=== PATIENT | male | born 1985 | race Caucasian/White ===

== ENCOUNTER → 2021-08-14 00:44 | Outpatient (CLI) | payer OTHER, SELFPAY ==
[2021-08-14 13:21] LABS: SARS-CoV-2 RNA PCR Negative
== END ==
PROVIDERS: PCP Internal Medicine; Visit Provider Urology
DX: Z01.812 Encounter for preprocedural laboratory examination (principal); Z20.822 Contact with and (suspected) exposure to COVID-19
CPT/HCPCS: C9803; U0003; U0005

== ENCOUNTER 2021-08-17 01:20 | Day surgery (SDC) | payer OTHER, SELFPAY ==
[2021-08-11 15:23] VITALS: BMI 41.3
--- NOTE | 2021-08-11 15:31 | PC.NURSE ---
Report to the Outpatient Waiting Room, entrance under the green pavilion located off [facility], at time 0600 on date 08/17/21. OR Time: 0730. - You will be asked a series of questions to screen for COVID 19 for your protection. - A mask is required within the hospital. - No visitors are allowed at this time. Preoperative COVID Testing Requirements: COVID TEST 08/14 AT 0925 No COVID Test needed if: (proof is required; if not received patient will have Rapid Test prior to entry) - Patient has received COVID Vaccine at least 14 days prior to procedure date or - Patient has positive COVID test result within last 90 days of surgery date. COVID Test needed if above criteria is not met If not COVID vaccinated a COVID test must be conducted within 72 hours of surgery and patient is asked to isolate self from time of testing until procedure. You will go to the [facility] for your COVID testing. The [facility] site is located at the corner of [address] [facility]. You will only be called if COVID results are positive and your surgeon may reschedule your elective surgery date. Patients may have clear liquids (water, carbonated beverages, clear teas, apple juice) until 3 hours prior to surgery with a maximum of 20 ounces. - No food from midnight until time of surgery Take the following medications with a SIP of water the morning of surgery: CITALOPRAM Medications to discontinue per physician: MELOXICAM Date to take last dose: PER DR. ANTOINE Please no make-up, nail swedish, hairspray, perfume, deodorant, or body powder the day of surgery. No jewelry (including any body piercings) or valuables the day of surgery, leave them at home. Please take a shower or bath the night before, or the morning of, surgery with an antibacterial soap. Wear comfortable, loose fitting clothing. - Jewelry must be removed prior to entering the operating room. Rings and piercings that are not removed may be cut off. - The hospital will not accept responsibility for valuables. - Please leave all valuables, including medications, at home the day of surgery. If you are going home after surgery, a licensed shuttle van driver must drive you home. - NO public transportation without another adult. - We recommend that an adult stay with you for 24 hours following discharge. - We also recommend that you do not drive, make important decision, drink alcoholic beverages, or take any drugs that were not prescribed by your health care provider for at least 24 hours after your discharge time. Follow any additional instructions given to you from your surgeon. Telephone instructions given to GEENA ADAME and asked if any additional questions and then verbalized understanding. Patient advised to call surgeon office or pre surgery nurse liaison [phone] if any additional questions.
[2021-08-17] VITALS (7 sets, daily range): BP systolic 128–144; BP diastolic 85–95; PULSE 65–86; RESP 10–18; TEMP 35.7–36; O2SAT 95–100; BMI 41.6
[2021-08-17] MEDS: LACTATED RINGERS 1,000 ML 30 ML IV CONT (07:03)
--- NOTE | 2021-08-17 07:12 | P.PNAN_ITS ---
Anes - Initial Pre Proc Eval Procedure: Operation Date: 08/17/21 07:30 Proposed Procedures p Bilateral Vasectomy, - Ted Goff MD s Possible Scrotal Exploration - Ted Goff MD Date/Time: 08/17/21 07:12 Surgeon: Ted Goff MD Pre Op Diagnosis: desires sterilization Patient Data Age: 35 Gender: M Height: 1.68 m Weight: 117 kg Last Vital Signs Temp 35.7 C L 08/17/21 06:43 Pulse 75 08/17/21 06:43 Resp 18 08/17/21 06:43 BP 144/95 H 08/17/21 06:43 Pulse Ox 98 08/17/21 06:43 Allergies Allergy/AdvReac Type Severity Reaction Status Date / Time Penicillins Allergy Unknown Unknown Verified 08/17/21 06:31 Home Medications Medication Instructions Recorded Confirmed Type citalopram 20 mg PO DAILY 08/11/21 08/17/21 History meloxicam 15 mg PO DAILY 08/11/21 08/17/21 History Patient hx anesthesia problems: none Family hx anesthesia problems: none Results Review: All pre-operative results and documents have been reviewed as part of the pre-operative evaluation. [facility] Past Medical History Medical History Anxiety Family History Family History Other Hypertension Social History Social History Smoking status: Never smoker Alcohol intake: current Drinks per week: 4 Substance use: never Substance use type: does not use Living arrangements: with family Spiritual care concerns: No Anes - Eval Final PreProcedure Day of Procedure 08/17/21 07:12 Patient weight: morbidly obese Heart: regular rate and rhythm Lungs: clear to auscultation Airway: Mallampati scale class II Neurological: alert and oriented Last oral intake: >/= 8 hours ASA classification: III Emergent: no Anesthetic plan: proceed Anesthesia type and monitoring: general GIVS and standard monitoring Results Review: All pre-operative results and documents have been reviewed as part of the pre-operative evaluation. Informed Consent: The patient's anesthetic plan and its attendant risks and benefits were discussed with the patient/family/POA. Questions were solicited and answers provided to the satisfaction of the patient/family/POA.
--- NOTE | 2021-08-17 07:29 | WPDHPUPDATE1 ---
History and Physical Update Update Date/Time: 08/17/21 07:29 History and Physical has been reviewed, including an updated exam of the patient. There are NO changes in the patient's condition. Risks, benefits, and alternatives have been discussed and questions answered. Patient agrees to proceed with procedure. Proceed with bilateral vasectomy, possible scrotal exploration
[2021-08-17] MEDS: ceFAZolin 2 GM/D5W 50 ML 2 GM/50 ML BAG IVPB (07:35)
--- NOTE | 2021-08-17 08:07 | W.PM.PROC2 ---
Procedure Note - Detailed Date of Procedure 08/17/21 Pre-op Diagnosis desires sterilization, fertility Post-op Diagnosis same Procedure Performed Bilateral vasectomy Surgeon Ted Goff MD Anesthesia general Description of Procedure Patient is taken to the operative suite correctly identified. Anesthesia was required as the patient had thick cords and difficulty having his vas palpated in the office. Once anesthesia was obtained was prepped and draped usual sterile fashion. Midline incision was made after palpating the right vas. The vas was then grasped with a vas clamp. Segment was excised the ends were fulgurated, ligated with 3-0 chromic, and buried, we anesthetized the cord with 1% lidocaine. Similar procedure was then done on the left side. Skin was closed using 3-0 chromic in an interrupted fashion. Skin the skin was anesthetized using 1% lidocaine. Estimated Blood Loss 0 Drains No Packing No Pathology yes Complications No immediate complications Condition stable Disposition PACU
== END 2021-08-17 09:30 | disposition home or self-care (01) ==
PROVIDERS: PCP Internal Medicine; Visit Provider Urology
PROC: (CPT 55250; principal; 2021-08-17 07:30)
PROC: (CPT 55110; 2021-08-17 07:30)
DX: Z30.2 Encounter for sterilization (principal); F41.9 Anxiety disorder, unspecified; E66.01 Morbid (severe) obesity due to excess calories; Z68.41 Body mass index [BMI] 40.0-44.9, adult
CPT/HCPCS: 55250; 88300; A9270; C9803; J0690; J2250; J2405; J2704; J7120; U0003; U0005

== ENCOUNTER 2022-01-04 08:35 | Outpatient (CLI) | payer OTHER, SELFPAY ==
--- NOTE | ~2022-01-04 | XR_ITS ---
EXAMINATION: XR elbow LT min 3V DATE: 01/04/2022 09:16 INDICATION: Left elbow pain TECHNIQUE: Anteroposterior, two oblique and lateral views of the left elbow were obtained. COMPARISON: None. FINDINGS: Alignment is normal. No fracture or joint effusion. Joint spaces are normal. Soft tissues are unremar kable. IMPRESSION: 1. . Negative left elbow radiographs. Reviewed, dictated and finalized at location B.
--- NOTE | ~2022-01-04 | XR_ITS ---
EXAMINATION: XR wrist LT min 3V DATE: 01/04/2022 09:16 INDICATION: Left wrist pain TECHNIQUE: Posteroanterior, oblique, and lateral views of the left wrist were obtained. COMPARISON: 08/11/2016 FINDINGS: Alignment is normal. No fracture. Joint spaces are normal. No erosions or periosteal reaction. Soft t issues are unremarkable. IMPRESSION: 1. Negative left wrist radiographs. Reviewed, dictated and finalized at location B.
[2022-01-04 08:55] LABS: Basophils Absolute Auto 0.02 K/mm3 (0.00-0.10); Basophils Percent Auto 0.4 % (0.0-1.0); Eosinophils Absolute Auto 0.14 K/mm3 (0.02-0.50); Eosinophils Percent Auto 2.5 % (1.0-6.0); Hematocrit 48.7 % (40.0-54.0); Hemoglobin 17.4 g/dL (14.0-18.0); Immature Granulocyte Absolute 0.02 K/mm3 (0.00-0.00); Immature Granulocyte Percent A 0.4 % (0.0-0.0); Immature Platelet Fraction Pct 1.8 % (1.0-7.0); Lymphocytes Percent Auto 17.8 % (18.0-42.0); Mean Corpuscular HGB Conc 35.7 g/dL (32.0-36.0); Mean Corpuscular Hemoglobin 31.8 pg (27.0-31.0); Mean Corpuscular Volume 88.9 fL (78.0-102.0); Mean Platelet Volume 8.6 fl (8.7-11.0); Monocytes Absolute Auto 0.38 K/mm3 (0.10-0.90); Monocytes Percent Auto 6.7 % (2.0-11.0); Neutrophils Absolute Auto 4.1 K/mm3 (1.7-7.2); Neutrophils Percent Auto 72.2 % (50.0-70.0); Platelet Count Result 130 K/mm3 (150-420); Red Blood Count 5.48 M/mm3 (4.70-6.10); Red Cell Distribution Width 12.1 % (11.6-14.4); White Blood Count 5.6 K/mm3 (4.8-10.8)
[2022-01-04 09:47] LABS: Alanine Aminotransferase 117 U/L (16-63); Albumin Level 4.4 g/dL (3.4-5.0); Alkaline Phosphatase 85 U/L (46-116); Anion Gap 6 mmol/L (8-16); Aspartate Amino Transferase 49 U/L (15-37); Bilirubin,Total 0.5 mg/dL (0.00-1.00); Blood Urea Nitrogen 13 mg/dL (7-18); Carbon Dioxide 29 mmol/L (21-32); Chloride 103 mmol/L (98-108); Cholesterol 244 mg/dL (0-200); Estimated Glomerular Filt Rate > 60; Glucose 98 mg/dL (70-99); HDL Direct 30 mg/dL (40-60); LDL Cholesterol Calculated 157 mg/dL (<130); Osmolality Calculated 286 mOsm/kg (285-295); Potassium 4.6 mmol/L (3.5-5.1); Sodium 138 mmol/L (136-145); Thyroid Stimulating Hormone 1.14 uIU/mL (0.36-3.74); Total Protein 7.4 g/dL (6.4-8.2); Triglycerides 283 mg/dL (0-150)
== END 2022-01-04 08:36 | disposition home or self-care (01) ==
LOC: CHSLAB 08:37
PROVIDERS: PCP Internal Medicine; Visit Provider Orthopaedic Surgery
DX: Z00.00 Encounter for general adult medical examination without abnormal findings (principal); F32.9 Major depressive disorder, single episode, unspecified; M25.522 Pain in left elbow; M25.532 Pain in left wrist; M19.90 Unspecified osteoarthritis, unspecified site
CPT/HCPCS: 36415; 73080; 73110; 80053; 80061; 84443; 85025; 85055

== ENCOUNTER 2022-03-04 00:18 | Day surgery (SDC) | payer OTHER, SELFPAY ==
--- NOTE | 2022-02-28 15:07 | PC.NURSE ---
Report to the Outpatient Waiting Room, entrance under the green pavilion located off [facility], at time _0600_ on date _03/04/22_. OR Time: _0730__. - You and your visitor will be asked to self-screen and do not enter if you have any COVID symptoms. - Only one visitor and NO children visitors are allowed at this time. - The patient visitor is requested to leave or wait in car when not with patient due to restrictions. - A mask is required within the hospital. Patients may have clear liquids (water, carbonated beverages, clear teas, apple juice) until 3 hours prior to surgery with a maximum of 20 ounces. - No food from midnight until time of surgery - Infants may have breast milk until 4 hours before surgery, formula 6 hours prior to surgery. - Children will be allowed to drink immediately following surgery. If applicable, please bring a bottle or sippy cup to assist with drinking. Juice, water, soda, and popsicles are readily available. For infants on formula, please bring formula the day of surgery. Pacifiers are allowed. Take the following medications with a SIP of water the morning of surgery: __citalopram ___ Medications to discontinue per physician __supplements or vitamins 3 days prior__ Date to take last dose Please no make-up, nail czech, hairspray, perfume, deodorant, or body powder the day of surgery. No jewelry (including any body piercings) or valuables the day of surgery, leave them at home. Please take a shower or bath the night before, or the morning of, surgery with an antibacterial soap. Wear comfortable, loose fitting clothing. Children are encouraged to wear pajamas. - Jewelry must be removed prior to entering the operating room. Rings and piercings that are not removed may be cut off. - The hospital will not accept responsibility for valuables. - Please leave all valuables, including medications, at home the day of surgery. If you are going home after surgery, a licensed hazardous materials tanker driver must drive you home. - NO public transportation without another adult. - We recommend that an adult stay with you for 24 hours following discharge. - We also recommend that you do not drive, make important decision, drink alcoholic beverages, or take any drugs that were not prescribed by your health care provider for at least 24 hours after your discharge time. For Pediatric surgeries, we recommend two adults accompany the child home (only one inside the building at this time). Follow any additional instructions given to you from your surgeon. If you or anyone in your household have experienced Covid symptoms in the past week, please notify your surgeon or the nurse liaison at the phone number below for possible testing. Telephone instructions given to _patient_and asked if any additional questions and then verbalized understanding. Patient advised to call surgeon office or pre surgery nurse liaison [phone] if any additional questions.
[2022-02-28 15:12] VITALS: BMI 40.3
[2022-03-04] MEDS: LACTATED RINGERS 1,000 ML 30 ML IV CONT (06:30)
--- NOTE | 2022-03-04 06:36 | P.PNAN_ITS ---
Anes - Initial Pre Proc Eval Procedure: Operation Date: 03/04/22 07:30 Proposed Procedures p Left Carpal Tunnel Release - Ramón Fulton MD Date/Time: 03/04/22 06:36 Surgeon: Ramón Fulton MD Pre Op Diagnosis: left carpal tunnel syndrome Patient Data Age: 36 Gender: M Height: 1.68 m Weight: 113.4 kg Allergies Allergy/AdvReac Type Severity Reaction Status Date / Time Penicillins Allergy Unknown Unknown Verified 02/28/22 14:57 Home Medications Medication Instructions Recorded Confirmed Type citalopram 20 mg tablet 20 mg PO DAILY 08/11/21 02/28/22 History chlorhexidine gluconate 4 % 1 applic topical ONCE #237 mL 02/11/22 02/28/22 Rx topical liquid (Hibiclens) Patient hx anesthesia problems: none Family hx anesthesia problems: none Results Review: All pre-operative results and documents have been reviewed as part of the pre- operative evaluation. [facility] Past Medical History Medical History (Updated 03/04/22 @ 06:37 by Demario Bradshaw MD) Anxiety Morbid obesity Surgical History Surgical History (Updated 03/04/22 @ 06:37 by Demario Bradshaw MD) H/O: vasectomy Family History Family History Other Hypertension Social History Social History Smoking status: Never smoker Alcohol intake: current Drinks per week: 2 Alcohol use details: pt stated maybe two on the weekend Substance use: never Substance use type: does not use Living arrangements: with family Spiritual care concerns: No Anes - Eval Final PreProcedure Day of Procedure 03/04/22 06:36 Patient weight: morbidly obese Heart: regular rate and rhythm Lungs: clear to auscultation Airway: Mallampati scale class II Neurological: alert and oriented Last oral intake: >/= 8 hours ASA classification: III Emergent: no Anesthesia type and monitoring: general LMA and standard monitoring Results Review: All pre-operative results and documents have been reviewed as part of the pre- operative evaluation. Informed Consent: The patient's anesthetic plan and its attendant risks and benefits were discussed with the patient/family/POA. Questions were solicited and answers provided to the satisfaction of the patient/family/POA.
[2022-03-04 07:00] VITALS: BP 144/98; PULSE 71; RESP 16; TEMP 36.2; O2SAT 99
--- NOTE | 2022-03-04 07:15 | WPDHPUPDATE1 ---
History and Physical Update Update Date/Time: 03/04/22 07:15 History and Physical has been reviewed, including an updated exam of the patient. There are NO changes in the patient's condition. Risks, benefits, and alternatives have been discussed and questions answered. Patient agrees to proceed with procedure.
--- NOTE | 2022-03-04 07:22 | PM.IMHP ---
H&P: HPI History of Present Illness Date/Time: 03/04/22 07:22 Chief Complaint: Hand/Wrist Pain Pt presents with Left elbow and wrist pain that has been chronic, non-traumatic. 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 He then underwent a Rt CTR in 2017. At this time, he has pain at the lateral aspect of the AC which radiates down the forearm. He has numbness/tingling in the fingers which is the most severe at the middle and ring fingers. He occasionally drops objects when he loses feeling in his hands. He has been taking Meloxicam which is not relieving his pain. He would like to discuss further treatment for his LUE. Involved hand: left Involved wrist: left Dominant hand: right Onset: gradual Location of pain: anterior, middle finger and ring finger Character: radiating Associated symptoms: Reports swelling and weakness Exacerbated by: rest, activities of daily living, writing and manipulative tasks Relieved by: NSAIDs and rest Swelling: Yes History of occupational/recreational activity with repetitive movement: No History of prior hand/wrist injury: No Review of Systems Review of Systems: All systems reviewed & are unremarkable except as noted in HPI and below PMFSH Past Medical History Medical History Anxiety Morbid obesity Surgical History Surgical History H/O: vasectomy Family History Family History Other Hypertension Social History Social History Smoking status: Never smoker Alcohol intake: current Drinks per week: 2 Alcohol use details: pt stated maybe two on the weekend Substance use: never Substance use type: does not use Living arrangements: with family Spiritual care concerns: No Meds Home Medications and Allergies Home Medications Medication Instructions Recorded Confirmed Type citalopram 20 mg tablet 20 mg PO DAILY 08/11/21 02/28/22 History chlorhexidine gluconate 4 % 1 applic topical ONCE #237 mL 02/11/22 02/28/22 Rx topical liquid (Hibiclens) Allergies Allergy/AdvReac Type Severity Reaction Status Date / Time Penicillins Allergy Unknown Unknown Verified 02/28/22 14:57 Exam Const: General: healthy appearing Eyes: General: appearance normal, both eyes and all related structures Neck: Neck: normal visual inspection Resp: Effort & Inspection: normal respiratory effort Auscultation: clear to auscultation bilaterally Cardio: Heart sounds: S1 normal heart sound present and S2 normal heart sound present GI: Inspection: normal to inspection Neuro: General: oriented to person, oriented to place and oriented to time Extrem: Left upper extremity: normal to inspection, wrist normal to inspection, normal ROM and normal vascular exam; no tenderness and no swelling and hand normal to inspection, normal capillary refill, neuromotor exam normal, neurosensory exam abnormal Details: median nerve sensory function abnormal, normal ROM of fingers and swelling; no abrasions, no lacerations, no ecchymosis and no crepitus Assessment and Plan Assessment and plan (1) Carpal tunnel syndrome of left wrist: Code(s): G56.02 - Carpal tunnel syndrome, left upper limb Status: Acute Plan GEENA IS HERE FOR LEFT CARPAL TUNNEL RELEASE. DISCUSSED NONOPERATIVE AND OPERATIVE TREATMENT OPTIONS WITH THE PATIENT. THE PATIENT'S QUESTIONS WERE ANSWERED. THE PATIENT DESIRES OPERATIVE TREATMENT. RISKS OF SURGERY INCLUDING BUT NOT LIMITED TO NEUROVASCULAR DAMAGE, WOUND COMPLICATIONS, BLOOD CLOT, PULMONARY EMBOLUS, STROKE, AL, ANESTHETIC RISKS UP TO AND INCLUDING WERE REVIEWED. CONTINUED PAIN AND POSSIBLE DYSFUNCTION WERE EXPLAINED. NO GUARANTEES WERE OFFERED. THE PATIENT UNDERSTANDS AND WISHES TO PROCEED.
--- NOTE | 2022-03-04 07:26 | WPDHPUPDATE1 ---
History and Physical Update Update Date/Time: 03/04/22 07:26 History and Physical has been reviewed, including an updated exam of the patient. There are NO changes in the patient's condition. Risks, benefits, and alternatives have been discussed and questions answered. Patient agrees to proceed with procedure.
[2022-03-04] MEDS: ACETAMINOPHEN 500 MG TABLET 1000 MG PO (07:30)
[2022-03-04] MEDS: CELECOXIB 200 MG CAPSULE PO (07:30)
[2022-03-04] MEDS: ceFAZolin 2 GM/D5W 50 ML 2 GM/50 ML BAG IVPB (07:31)
[2022-03-04] MEDS: BUPIVACAINE HCL 0.5% PF 30 ML VIAL INFILTRATE (07:59)
[2022-03-04 08:29] VITALS: BP 140/91; PULSE 69; RESP 16; O2SAT 98
--- NOTE | 2022-03-04 08:38 | W.PM.PROC2 ---
Procedure Note - Detailed Date of Procedure 03/04/22 Pre-op Diagnosis left carpal tunnel syndrome Post-op Diagnosis Same Procedure Performed LEFT CTR Surgeon Ramón Fulton MD Anesthesia General Description of Procedure THE LEFT UPPER EXTREMITY WAS PREPPED AND DRAPED IN THE STERILE FASHION. THE CARPAL TUNNEL WAS MARKED FROM THE FLEXED RING FINGER. THE TORNEQUET WAS INFLATED. THE INCISION WAS MADE AT THE MID PALM DOWN THROUGH THE SUBCUTANEOUS TISSUES. THE PALMAR FASCIA WAS IDENTIFIED. AN INCISION WAS MADE THROUGH THE PALMAR FASCIA UNTIL THE CARPAL TUNNEL WAS ENTERED. A MOSQUITO HEMOSTAT WAS USED TO PROTECT THE MEDIAN NERVE WHILE THE INCISION TO THE PALMAR FASCIA WAS COMPLETE PROXIMALLY AND DISTALLY TO THE CARDINAL LINE. NEXT, THE TRANSVERSE CARPAL LIGAMENT WAS IDENTIFIED. A FREIER ELEVATOR WAS USED TO SEPARATE THE NERVE FROM THE LIGAMENT. A METZENBAUM SCISSORS WAS THEN USED TO INCISE THE TRANSVERSE CARPAL LIGAMENT UNTIL THERE WAS A COMPLETE RELEASE OF THE CARPAL TUNNEL. THE MEDIAN NERVE WAS INTACT. THE TOURNEQUET WAS DEFLATED. THE BLEEDERS WERE CAUTERIZED. THE WOUND WAS WASHED. THE SKIN WAS APPROXIMATED WITH 4-0 NYLON SUTURE. STERILE DRESSING WAS APPLIED. PATIENT WAS EXTUBATED AND SENT TO THE RECOVERY ROOM. Estimated Blood Loss -2.0 Complications No immediate complications Condition Stable Disposition PACU
[2022-03-04 08:55] VITALS: BP 140/82; PULSE 61; RESP 16
[2022-03-04 09:10] VITALS: BP 140/84; PULSE 63; RESP 14
== END 2022-03-04 09:16 | disposition home or self-care (01) ==
PROVIDERS: PCP Internal Medicine; Visit Provider Orthopaedic Surgery
PROC: (CPT 64721; principal; 2022-03-04 07:30)
DX: G56.02 Carpal tunnel syndrome, left upper limb (principal); F41.9 Anxiety disorder, unspecified; E66.01 Morbid (severe) obesity due to excess calories; Z68.41 Body mass index [BMI] 40.0-44.9, adult
CPT/HCPCS: 64721; A9270; J0690; J1100; J2250; J2405; J2704; J3010; J7120